=== PATIENT | male | born 1970 | race Caucasian/White ===

== ENCOUNTER 2016-12-01 00:17 | Emergency (ER) | payer MEDICAID ==
[2016-12-01] MEDS ORDERED: METHYLPRED SOD SUCC 125 MG/2 ML VIAL ONE (01:51)
[2016-12-01] MEDS ORDERED: NEB-ALBUTEROL 2.5 MG/3 ML INH ONE ×2 (02:09)
== END 2016-12-01 02:30 | disposition home or self-care (01) ==
LOC: ER 00:17
CPT/HCPCS: 71010; 93005; 94640; 96374

== ENCOUNTER 2016-12-15 19:52 | Inpatient (IN) | payer MEDICARE ==
[~2016-12-15] VITALS: Ht 172.7 cm; Wt 59.6 kg
[2016-12-15] MEDS ORDERED: ACETAMINOPHEN 325 MG TAB PO PRN (22:05)
[2016-12-15] MEDS ORDERED: ONDANSETRON 4 MG VIAL IV PUSH PRN (22:10)
[2016-12-15] MEDS: DUONEB INH SCH (23:00)
[2016-12-16] VITALS (10 sets, daily range): BP systolic 160–196; RESP 18–20; TEMP 97.5–98.2; Ht 172.7 cm; Wt 59.6 kg
[2016-12-16] MEDS: DUONEB INH SCH ×10 (03:00→23:00)
[2016-12-16] MEDS ORDERED: *PINK BRACELET XX ONE (04:45)
[2016-12-16] MEDS: LABETALOL 100 MG/20 ML VIAL IV PUSH PRN (05:00)
[2016-12-16] MEDS ORDERED: DUONEB INH PRN (06:55)
[2016-12-16] MEDS: *HOME MEDS KEPT IN PHARMACY XX SCH ×2 (08:00→19:11)
[2016-12-16] MEDS: ISOSORBIDE MONO 60 MG TAB PO SCH (08:05)
[2016-12-16] MEDS: amLODIPine 10 MG TAB PO SCH (08:05)
[2016-12-16] MEDS: PREDNISONE 20 MG TAB PO SCH (08:05)
[2016-12-16] MEDS: cloNIDine 0.2 MG TAB PO SCH ×3 (08:05→20:29)
[2016-12-16] MEDS: ALPRAZOLAM 0.25 MG TAB PO SCH ×3 (08:06→20:29)
[2016-12-16] MEDS: FLUOXETINE 20 MG CAP PO SCH (08:06)
[2016-12-16] MEDS: QUEtiapine 25 MG TAB PO SCH ×2 (08:06→20:29)
[2016-12-16] MEDS: CALCIUM ACETATE 667MG CAP PO SCH ×3 (08:07→16:17)
[2016-12-16] MEDS: SPIRONOLACTONE 25 MG TAB PO SCH ×2 (12:53→20:37)
[2016-12-16] MEDS: BUMETANIDE 1 MG/4 ML VIAL IV SCH ×3 (12:54→23:28)
[2016-12-16] MEDS: quiNINE SULF 324 MG CAP PO SCH (12:59)
[2016-12-16] MEDS ORDERED: MISSING DOSE XX ONE (20:30)
[2016-12-17 03:26] VITALS: BP_SYST 178; RESP 18; TEMP 97.6
[2016-12-17] MEDS: LABETALOL 100 MG/20 ML VIAL IV PUSH PRN (03:32)
[2016-12-17 03:50] VITALS: BP_SYST 164; RESP 18
[2016-12-17] MEDS: BUMETANIDE 1 MG/4 ML VIAL IV SCH (05:10)
[2016-12-17 07:12] VITALS: BP_SYST 172; RESP 18; TEMP 97.4
[2016-12-17] MEDS: DUONEB INH SCH ×3 (07:31→14:42)
[2016-12-17] MEDS: *HOME MEDS KEPT IN PHARMACY XX SCH (08:00)
[2016-12-17] MEDS: CALCIUM ACETATE 667MG CAP PO SCH (08:52)
[2016-12-17] MEDS: QUEtiapine 25 MG TAB PO SCH (08:52)
[2016-12-17] MEDS: amLODIPine 10 MG TAB PO SCH (08:52)
[2016-12-17] MEDS: SPIRONOLACTONE 25 MG TAB PO SCH (08:52)
[2016-12-17] MEDS: ALPRAZOLAM 0.25 MG TAB PO SCH (08:52)
[2016-12-17] MEDS: PREDNISONE 20 MG TAB PO SCH (08:52)
[2016-12-17] MEDS: FLUOXETINE 20 MG CAP PO SCH (08:53)
[2016-12-17] MEDS: ISOSORBIDE MONO 60 MG TAB PO SCH (08:53)
[2016-12-17] MEDS: cloNIDine 0.2 MG TAB PO SCH (08:53)
[2016-12-17 08:56] VITALS: BP_SYST 172; RESP 18; TEMP 97.4
[2016-12-17 08:58] VITALS: BP_SYST 172; RESP 18; TEMP 97.4
[2016-12-17] MEDS: quiNINE SULF 324 MG CAP PO SCH (09:00)
== END 2016-12-17 09:20 | disposition home or self-care (01) | DRG 291 ==
LOC: ENRESERVTM → ENRESERVDT → ER 19:52 → EMR 21:56 → 5THW 12-16 04:12 → OBSVTOIN 12-16 12:06
PROVIDERS: ADMIT Internal Medicine Nephrology; ATTEND Internal Medicine Nephrology
PROC: 5A1D00Z (ICD-10-PCS; principal; 2016-12-16)
DX: I13.2 Hypertensive heart and chronic kidney disease with heart failure and with stage 5 chronic kidney disease, or end stage renal disease (principal); N18.6 End stage renal disease; J96.90 Respiratory failure, unspecified, unspecified whether with hypoxia or hypercapnia; I50.31 Acute diastolic (congestive) heart failure; J44.1 Chronic obstructive pulmonary disease with (acute) exacerbation; Z99.2 Dependence on renal dialysis; I73.9 Peripheral vascular disease, unspecified; F41.9 Anxiety disorder, unspecified; Z91.128 Patient's intentional underdosing of medication regimen for other reason; M54.9 Dorsalgia, unspecified; B19.20 Unspecified viral hepatitis C without hepatic coma; G89.29 Other chronic pain; F17.210 Nicotine dependence, cigarettes, uncomplicated
CPT/HCPCS: 36415; 36600; 71010; 71020; 80051; 80053; 82330; 82553; 82803; 83880; 84484; 85025; 93005; 94640; 94799

== ENCOUNTER 2016-12-30 23:26 | Observation (INO) | payer MEDICARE, MEDICAID ==
[~2016-12-30] VITALS: Ht 175.3 cm; Wt 59.6 kg
[2016-12-31] VITALS (7 sets, daily range): BP systolic 151–194; RESP 18–20; TEMP 97–98.4; Ht 175.3 cm; Wt 59.6 kg
[2016-12-31] MEDS ORDERED: DUONEB INH ONE (01:07)
[2016-12-31] MEDS ORDERED: ALPRAZOLAM 0.25 MG TAB PO PRN (02:10)
[2016-12-31] MEDS ORDERED: ACETAMINOPHEN 325 MG TAB PO PRN (02:10)
[2016-12-31] MEDS ORDERED: METHYLPRED SOD SUCC 125 MG/2 ML VIAL IV ONE (02:10)
[2016-12-31] MEDS ORDERED: ONDANSETRON 4 MG VIAL IV PUSH PRN (02:10)
[2016-12-31] MEDS: DUONEB INH SCH ×3 (03:06→10:26)
[2016-12-31] MEDS ORDERED: MISSING DOSE XX ONE (03:20)
[2016-12-31] MEDS ORDERED: ALBUMIN HUMAN 25GM (25%) 100 ML IV PRN (08:45)
[2016-12-31] MEDS ORDERED: SODIUM CHLORIDE 0.9% 1,000 ML IV SCH (08:45)
[2016-12-31] MEDS ORDERED: ONDANSETRON 4 MG VIAL IV PRN (08:45)
[2016-12-31] MEDS ORDERED: SODIUM CHLORIDE 0.9% 1,000 ML IV PRN (08:45)
[2016-12-31] MEDS ORDERED: LORATADINE 10 MG TAB PO SCH (09:00)
[2016-12-31] MEDS ORDERED: QUEtiapine 25 MG TAB PO SCH (09:00)
[2016-12-31] MEDS ORDERED: ISOSORBIDE MONO 60 MG TAB PO SCH (09:00)
[2016-12-31] MEDS ORDERED: cloNIDine 0.2 MG TAB PO SCH (09:00)
[2016-12-31] MEDS ORDERED: ALPRAZOLAM 0.25 MG TAB PO SCH (09:00)
[2016-12-31] MEDS ORDERED: PREDNISONE 20 MG TAB PO SCH (09:00)
[2016-12-31] MEDS ORDERED: FLUOXETINE 20 MG CAP PO SCH (09:00)
[2016-12-31] MEDS ORDERED: amLODIPine 10 MG TAB PO SCH (09:00)
[2016-12-31] MEDS ORDERED: CEFTRIAXONE 1 GM in SODIUM CHLORIDE 0.9% 50 ML IV SCH (09:00)
[2016-12-31] MEDS ORDERED: CALCIUM ACETATE 667MG CAP PO SCH (12:00)
[2016-12-31] MEDS ORDERED: hePARIN 1,000 UNITS/1 ML VIAL DIALYSIS ONE (12:33)
== END 2016-12-31 12:34 | disposition home or self-care (01) ==
LOC: ENRESERVDT → ENRESERVTM → ER 23:26 → EMR 23:27 → ENPENDDIS 23:27 → PCU2 12-31 02:25
PROVIDERS: ADMIT Internal Medicine Nephrology; ATTEND Internal Medicine Nephrology
DX: J44.1 Chronic obstructive pulmonary disease with (acute) exacerbation (principal); I13.2 Hypertensive heart and chronic kidney disease with heart failure and with stage 5 chronic kidney disease, or end stage renal disease; N18.6 End stage renal disease; F17.210 Nicotine dependence, cigarettes, uncomplicated; Z99.2 Dependence on renal dialysis; R06.00 Dyspnea, unspecified; T46.5X6A Underdosing of other antihypertensive drugs, initial encounter; Z91.128 Patient's intentional underdosing of medication regimen for other reason; F41.9 Anxiety disorder, unspecified; I50.30 Unspecified diastolic (congestive) heart failure; F32.9 Major depressive disorder, single episode, unspecified; B17.10 Acute hepatitis C without hepatic coma; E83.39 Other disorders of phosphorus metabolism; I73.9 Peripheral vascular disease, unspecified; Z98.1 Arthrodesis status
CPT/HCPCS: 36415; 36600; 71010; 80051; 80053; 82330; 82553; 82803; 83605; 83880; 84484; 85025; 93005; 94640; 96365; 99285; G0378; J0696; J2930; J7512; 94799

== ENCOUNTER 2017-01-01 20:30 | Emergency (ER) | payer MEDICARE, MEDICAID ==
[2017-01-01] MEDS ORDERED: DUONEB INH ONE ×2 (21:09)
[2017-01-01] MEDS ORDERED: METHYLPRED SOD SUCC 125 MG/2 ML VIAL ONE (23:46)
== END 2017-01-02 00:04 | disposition home or self-care (01) ==
LOC: ER 20:30
DX: J81.1 Chronic pulmonary edema (principal); J44.1 Chronic obstructive pulmonary disease with (acute) exacerbation; I13.2 Hypertensive heart and chronic kidney disease with heart failure and with stage 5 chronic kidney disease, or end stage renal disease; N18.6 End stage renal disease; I50.9 Heart failure, unspecified; Z99.2 Dependence on renal dialysis; I25.2 Old myocardial infarction; F17.200 Nicotine dependence, unspecified, uncomplicated; Z79.51 Long term (current) use of inhaled steroids; Z79.899 Other long term (current) drug therapy
CPT/HCPCS: 36415; 71010; 80053; 82553; 84484; 85025; 93005; 94640; 99284; J2930